=== PATIENT | male | born 1995 | race Caucasian/White ===

== ENCOUNTER → 2020-09-14 14:26 | Outpatient (CLI) | payer BC, SELFPAY ==
[2020-09-14 17:35] LABS: Absolute Lymphocyte Count 1.25 X10^3/uL (0.83-4.51); Absolute Neutrophil Count 3.4 X10^3/uL (2.0-7.7); Basophil# 0.03 X10^3/uL; Basophil% 0.6 % (0-1); Eosinophil# 0.19 X10^3/uL; Eosinophils% 3.5 % (0-5); Hemoglobin 15.8 g/dL (13.0-16.5); Lymphocyte # 1.25 X10^3/ul (0.83-4.51); Lymphocyte % 23.1 % (19-41); Mean Corp Hgb Conc 33.6 g/dL (32-36); Mean Corpuscular Hgb 28.5 pg (27.0-32.0); Mean Corpuscular Volume 84.8 fL (80-94); Mean Platelet Vol. 11.8 fl (6.2-12.0); Monocyte# 0.52 X10^3/uL; Monocyte% 9.6 % (0-10); NRBC Flagged by Analyzer 0 % (0-5); Neutrophil # 3.39 X10^3/uL (2.7-7.7); Neutrophil % 62.6 % (47-70); Platelet Count 237 K/mm3 (150-450); RBC Distribution Width CV 12.9 % (11.6-14.6); RBC Distribution Width SD 39.8 fl (35.1-43.9); Red Blood Count 5.54 M/mm3 (4.6-6.2); White Blood Count 5.4 K/mm3 (4.4-11.0)
[2020-09-14 17:56] LABS: ALB/GLOB Ratio 1.1 RATIO (0.9-2.4); AST(SGOT) 47 U/L (15-37); Alanine Aminotransfer ALT/SGPT 161 U/L (16-61); Albumin, Serum 3.9 g/dL (3.2-5.0); Alkaline Phosphatase 121 U/L (45-117); Anion Gap 6 (5-15); BUN 18 mg/dL (7-18); BUN/Creat Ratio 13.8 RATIO (10-20); Calcium,Total 8.7 mg/dL (8.5-10.1); Chloride 107 mmol/L (98-107); EST Glomerular Filtration Rate 73 mL/min (>60); Est Glom Filt Rate - Afr Amer 88 mL/min (>60); Globulin 3.7 g/dL (2.2-4.2); Glucose 67 mg/dL (74-106); Potassium 3.5 mmol/L (3.5-5.1); Protein, Total 7.6 g/dL (6.4-8.2); Sodium Level 141 mmol/L (136-145)
[2020-09-19 03:07] LABS: HEPATITIS B SURFACE AG Negative (Negative); Hepatitis A AB, Total Negative (Negative); Hepatitis A IgM Antibody Negative (Negative); Hepatitis B Core AB IgM Negative (Negative); Hepatitis B Core Ab Total Negative (Negative); Hepatitis C Ab 0.2 s/co ratio (0.0-0.9); QNTFERON TB Mitogen Value > 10.00 IU/mL (.); QNTFERON TB Nil Value 0.06 IU/mL (.); QNTFERON TB1+ Ag Value 0.08 IU/mL (.); QNTFERON TB2+ Ag Value 0.08 IU/mL (.)
[2020-09-19 15:06] LABS: Hep B Surface Antibodies Non Reactive (.); QNTIFERON TB Positive Criteria Negative (Negative)
== END ==
PROVIDERS: PCP Internal Medicine Endocrinology, Diabetes & Metabolism; Referring Provider Physician Assistant Medical; Visit Provider Physician Assistant Medical
DX: L40.0 Psoriasis vulgaris (principal); L40.8 Other psoriasis; L80 Vitiligo; Z79.899 Other long term (current) drug therapy
CPT/HCPCS: 36415; 80053; 85025; 86480; 86704; 86705; 86706; 86708; 86709; 86803; 87340

== ENCOUNTER → 2022-04-13 | Outpatient (CLI) | payer BC, SELFPAY ==
--- NOTE | 2022-04-13 08:22 | MRI_ITS ---
STUDY: MRI RIGHT KNEE REASON FOR EXAM: Male, 26 years old. Pain and injury. RIGHT knee pain, prior ACL repair 2014 TECHNIQUE: Standardized fat and water weighted pulse sequences were obtained in all 3 orthogonal planes. COMPARISON: X-ray of the right knee dated March 21, 2022 FINDINGS: There is diffuse complex tearing of the posterior horn of the medial meniscus with a large 3.1 x 2.33 cm extruded lobulated parameniscal ganglion cyst from a component of the tear at the root insertion. A small undersurface tear is also present in the body of the medial meniscus. Anterior horn is normal. There is diffuse, less than 50% thickness articular cartilage loss of the medial femorotibial compartment. Normal medial femoral condyle and tibial plateau. Normal medial collateral ligamentous complex (MCL). Normal distal semimembranosus, gracilis and semitendinosus tendons. Normal lateral meniscus. Normal hyaline cartilage of the lateral femorotibial compartment. Normal lateral femoral condyle and tibial plateau. Normal proximal tibiofibular articulation. Normal lateral collateral (fibular) ligament. Normal popliteus tendon. Normal biceps femoris tendon. The ACL graft is intact and without complications or tearing. Anchoring hardware in the femur and tibia are in expected position. No cyclops fibrous lesion is present near the ACL. No marrow edema or occult fracture or osteochondral defect is seen. A tiny amount of joint fluid is present. Normal posterior cruciate ligament (PCL). Normal congruent patellofemoral articulation. Normal hyaline cartilage of the patellofemoral compartment. Normal medial and lateral patellar retinaculum. Normal quadriceps tendon. There is mild diffuse patellar tendinosis with thickening of the tendon. There is linear fibrotic scarring of Hoffa''s fat pad, consistent with postsurgical changes from prior arthroscopic portal placements. A small graves''s cyst is present. The soft tissues are unremarkable. The otherwise visualized osseous structures are unremarkable. MRI/Lower Ext Joint Only (Routine) IMPRESSION: 1. Diffuse complex tearing of the posterior horn of the medial meniscus with a large 3.1 x 2.33 cm extruded lobulated parameniscal ganglion cyst from a component of the tear at the root insertion. A small undersurface tear is also present in the body of the medial meniscus. Electronically Signed: Jimy Sullivan MD at 12:16 EST ,
== END | disposition home or self-care (01) ==
LOC: MRI 08:26
PROVIDERS: PCP Internal Medicine Endocrinology, Diabetes & Metabolism; Referring Provider Physician Assistant; Visit Provider Physician Assistant
DX: M25.561 Pain in right knee (principal); M23.91 Unspecified internal derangement of right knee
CPT/HCPCS: 73721

== ENCOUNTER 2022-05-21 08:03 | Day surgery (SDC) | payer BC, SELFPAY ==
[2022-05-21] VITALS (8 sets, daily range): BP systolic 109–145; BP diastolic 48–102; PULSE 64–83; RESP 16; TEMP 36.1–36.9; O2SAT 91–100; BMI 35.2
[2022-05-21] MEDS: Lactated Ringers 1,000 ML 15 ML IV (08:46)
--- NOTE | 2022-05-21 10:06 | PCM.HP.STD ---
HPI - General HPI Narrative ANTON BLANC, is a 26 M who presents for right knee arthroscopy medial meniscus repair or partial meniscectomy. Had a prior ACL reconstruction the graft felt stable MRI shows it to be stable no subjective sensations of giving way however does have pain on the posterior medial aspect of the knee. No changes to history and physical exam. Patient wished to proceed right knee marked. Risks alternatives benefits discussed of the procedure patient wishes to proceed. Narcotic counseling done. MR#: [id number] Acct: [id number] Name:ANTON BENNETT Rep #: [id number] : 1995 ? ? Provider: Dr. Elkin Garnica MD Age/Sex:? 26/M ? ? Location: [facility] – [place] Status: Signed Intake Intake Visit Reasons:?RIGHT KNEE Chief Complaint: right knee Accompanied by: Self Is patient in pain?: Yes Allergies No Known Allergies Allergy (Verified 03/21/22 13:19) Medications adalimumab 40 mg/0.8 mL subcutaneous pen kit (Humira Pen) See Rx Instructions subcut .COMPLEX 03/21/22 [History Confirmed 04/18/22] levothyroxine 100 mcg capsule 100 mcg PO DAILY 03/21/22 [History Confirmed 04/18/22] PFSH Medical History? Tear of medial meniscus of right knee HPI RIGHT KNEE Details: Parts of this documentation were recorded by a scribe, this documentation accurately reflects the service provided and the decisions made by me, Dr. Elkin Garnica MD 04/18/22 1055. ANTON BLANC is a 26 year old M here today for? right knee pain, [address] Denson in [facility]. Meniscus repair possibly? Knee felt fine after that. Was working out, jumped down off a box, knee gave out, no pop, felt a pop, 4 weeks ago, and then now small things like twisting the knee and pivoting feels like it catches, or worse with going down stairs it buckled, on medial and lateral sides. Tweaked like getting out of the car. 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 per Fidencio GODOY ?right knee pain that started today. States that he was at crossfit this morning and was doing box jumps and when he came down off the box his knee gave on him. States that in 2015 he tore his ACL and his knee felt the same then as it did today when he re-injured it. States that sometimes when he hyper-extends his knee he feels it catching or clicking. States that his pain is posterior. Denies any radiating pain. States that he has had knee surgery from when he tore his ACL and notes that during the surgery that also closed up a tear that was either in his MCL or meniscus but he can't remember which one. States that walking increases his pain. Denies taking anything for the pain. Ortho Exam General General: Yes no acute distress Neurologic: Yes alert and Yes oriented x3 Psychologic: Yes reasonable and appropriate Right Knee Skin/Wound: Yes CDI, No erythema, No ecchymosis and No swelling 1+: Effusion Knee ROM: Yes ROM-Flexion 0-140 Examination: Yes Med jt line tenderness, Yes Lat jt line tenderness, No TTP inf pole patella, No Crepitus, Yes Pain with flexion, No Pain with extention, Yes Hoang's Test, No TTP Patellar tendon, No TTP Tibial tubercle, No TTP Pes Anserine and No Illiotibial band tenderness Quad Atrophy: No Stability: NML: Anterior Drawer, NML: Alcides, NML: Posterior Drawer, NML: Valgus 0, NML: Valgus 30, NML: Varus 0 and NML: Varus 30 Patella Translation: 2 Apprehension with Lateral Translation: No Patellar Tilt Normal: Yes Patella Grind: No KNEE: NVI normal sens and motor to foot. Left Knee Patella Translation: 2 Supplemental Info MR#:? [id number] Acct: [id number] Name:? ANTON BLANC Rep #: [id number] :?? 1995 M 26 ? From:? ? Pal Haney MD PCP: Dr. Joyce Diaz MD ? Status: DEP AMB Study: Knee 4 or More Views ? Date of Exam: 03/21/22 Exam# [id number] ? Ordering Dr:? Barry Porter STUDY: ? X-RAY - RIGHT KNEE REASON FOR EXAM: ? Male, 26 years old.? Pain TECHNIQUE: ? 4 view(s) of the knee. COMPARISON: ? None. FINDINGS: The patient is status post anterior cruciate ligament repair with tunnels seen in the distal femur and proximal tibia. Normal medial femorotibial compartment.? Normal lateral femorotibial compartment.? Normal patellofemoral articulation. The soft tissue structures are unremarkable. RAD/Knee 4 or More Views IMPRESSION: Status post anterior cruciate ligament repair.? No acute abnormality is seen. ? Electronically Signed: Pal Haney MD at 14:56 EST , ? MR#:? [id number] Acct: [id number] Name:? ANTON BLANC Rep #: [id number] :?? 1995 M 26 ? From:? ? Jimy Sullivan MD PCP: Dr. Joyce Diaz MD ? Status: REG CLI Study: Lower Ext Joint Only (Routine) ? Date of Exam: 04/13/22 Exam# [id number] ? Ordering Dr:? Barry Porter STUDY:? MRI RIGHT KNEE REASON FOR EXAM:? Male, 26 years old.? Pain and injury. RIGHT knee pain, prior ACL repair 2014 TECHNIQUE:? Standardized fat and water weighted pulse sequences were obtained in all 3 orthogonal planes. COMPARISON:? X-ray of the right knee dated March 21, 2022 FINDINGS: There is diffuse complex tearing of the posterior horn of the medial meniscus with a large 3.1 x 2.33 cm extruded lobulated parameniscal ganglion cyst from a component of the tear at the root insertion. A small undersurface tear is also present in the body of the medial meniscus. Anterior horn is normal. There is diffuse, less than 50% thickness articular cartilage loss of the medial femorotibial compartment.? Normal medial femoral condyle and tibial plateau. Normal medial collateral ligamentous complex (MCL).? Normal distal semimembranosus, gracilis and semitendinosus tendons. Normal lateral meniscus.? Normal hyaline cartilage of the lateral femorotibial compartment.? Normal lateral femoral condyle and tibial plateau. Normal proximal tibiofibular articulation.? Normal lateral collateral (fibular) ligament.? Normal popliteus tendon.? Normal biceps femoris tendon. The ACL graft is intact and without complications or tearing. Anchoring hardware in the femur and tibia are in expected position. No cyclops fibrous lesion is present near the ACL. No marrow edema or occult fracture or osteochondral defect is seen. A tiny amount of joint fluid is present. Normal posterior cruciate ligament (PCL). Normal congruent patellofemoral articulation.? Normal hyaline cartilage of the patellofemoral compartment.? Normal medial and lateral patellar retinaculum. Normal quadriceps tendon.? There is mild diffuse patellar tendinosis with thickening of the tendon.? There is linear fibrotic scarring of Hoffa''s fat pad, consistent with postsurgical changes from prior arthroscopic portal placements. A small graves''s cyst is present. The soft tissues are unremarkable.? The otherwise visualized osseous structures are unremarkable. MRI/Lower Ext Joint Only (Routine) IMPRESSION: 1.? Diffuse complex tearing of the posterior horn of the medial meniscus with a large 3.1 x 2.33 cm extruded lobulated parameniscal ganglion cyst from a component of the tear at the root insertion. A small undersurface tear is also present in the body of the medial meniscus. ? Electronically Signed: Jimy Sullivan MD at 12:16 EST Reading Location ID and State: [facility] / [place] , Service support? , Reviewed the images and agree with radiologist interpretation Coding Level of Care Code Off vis,est,level 4 Diagnoses Tear of medial meniscus of right knee? I01.876A Time Spent (min) 30 Assessment and Plan Assessment and Plan (1) Tear of medial meniscus of right knee: ?Status:?Acute ?Plan: 26-year-old man 4 weeks after a twisting injury to the knee in the setting of a prior ACL reconstruction with MRI showing medial meniscus tear and mechanical symptoms as well as pain on the medial side of the knee with a positive Hoang's test and stable graft on exam and MRI.? We discussed pros and cons risks and benefits of continued conservative management physical therapy injections activity modifications anti-inflammatories or other means of treating this.? Surgical option for this would be arthroscopy and medial meniscus partial meniscectomy or repair depending on tear configuration and appearance of the tear during surgery.? We discussed the pros and cons risks and benefits of each of those methods of treatment as well as the postoperative restrictions after meniscal repair.? He would like to go ahead with surgery some extent form for that as well as possible need for blood products. Surgery was booked as right knee arthroscopy, medial meniscus repair or partial meniscectomy Pros and cons risks and benefits were discussed with the patient including but not limited to infection, pain, stiffness, bleeding, damage to surrounding structures, neurovascular injury, recurrence or retear, failure or wear of hardware or fixation, instability, fracture, deep vein thrombosis and pulmonary embolism, anesthetic risks, patient dissatisfaction, need for further surgery and other risks.? Patient understood and wished to proceed with surgery, and signed the informed consent documentation. [facility] Medical History (Updated 05/14/22 @ 10:03 by Yaquelin Pierre) Alcohol use History of pain when walking History of tear of ACL (anterior cruciate ligament) Marijuana use Non-smoker Psoriatic arthritis Tear of medial meniscus of right knee Thyroid disease Wears contact lenses Wears glasses Home Medications adalimumab 40 mg/0.8 mL subcutaneous pen kit (Humira Pen) 40 mg subcut .QOTHERWEEK 03/21/22 [History Last Taken Unknown] levothyroxine 100 mcg capsule 125 mcg PO DAILY 03/21/22 [History Last Taken 05/21/22] testosterone cypionate 200 mg/mL intramuscular kit 200 mg IM .QOTHERWEEK 05/14/22 [History Last Taken Unknown] Allergy/AdvReac Type Severity Reaction Status Date / Time No Known Allergies Allergy Verified 05/21/22 08:47 Surgical History (Updated 05/14/22 @ 10:03 by Yaquelin Pierre) Hx of removal of testicle Hx of tonsillectomy Social History Smoking Status: Never smoker Vital Signs Vital Signs Vital Signs: 05/21/22 08:48 05/21/22 08:48 Temperature 98.0 F Temperature Source Temporal Pulse Rate 73 Respiratory Rate 16 Respiratory Pattern Normal Blood Pressure 145/102 H Blood Pressure Mean 116 Blood Pressure Source Monitor Blood Pressure Position Semi-Fowlers Blood Pressure Location Right Arm Pulse Ox 100 Oxygen Delivery Method Room Air Weight Weight: 260 lb 2.327 oz Body Mass Index (BMI) 35.2
[2022-05-21] MEDS: Cefazolin 2 GM in 0.9% Normal Saline 100 ML IV (10:13)
[2022-05-21] MEDS: Epinephrine (1 mg/ml) 1 MG/ML VIAL (10:45)
[2022-05-21] MEDS: Bupivacaine 0.25% 30 ML Vial (11:17)
--- NOTE | 2022-05-21 11:28 | PCM.OPRPT ---
Problems Associated Problem List Diagnoses (1) Tear of medial meniscus of right knee: Report of Operation Date of Procedure: 05/21/22 Pre-Operative Diagnosis: right knee medial meniscus tear Post-Operative Diagnosis: same Surgery/Procedure Performed:: right knee arthroscopy, debridement of adhesions, medial meniscus repair Surgeon: Elkin Garnica Type of Anesthesia: General and Local Anesthesiologist: Alexys Rodrigez Special Medications: 10cc 0.25% bupivicaine Estimated Blood Loss (mL): 25 Description of Procedure: Patient brought to the operating room theater. Placed supine on the table. General anesthesia induced. 3 g IV Ancef administered prior to the start of the procedure. 34 inch tourniquet applied to the right thigh appropriately padded. Stress positioner used the right side. SCD on the nonoperative leg. Right lower extremity prepped and draped in the usual sterile fashion with chlorhexidine-based prep solution allowing over 3 minutes drying time prior to draping. Preoperative timeout performed to confirm the site the patient and the surgery. Began by elevating the limb inflating the tourniquet to 250 mmHg. Made standard anterolateral and anteromedial arthroscopy incisions. There is some mild amount of scar tissue in the anterior aspect of the intra-articular portion of the knee. This was gently debrided. Medial lateral gutters entered no loose bodies. Patellofemoral cartilage appeared normal. Lateral meniscus was normal as was the cartilage in the lateral and medial compartments. ACL graft was stable and solid. Examination under anesthetic prior to arthroscopy. Revealed a stable graft no pivot shift solid endpoint with Alcides testing. Ligament appeared intact. Some extraneous tissue in the superior aspect of the notch removed. Medial meniscus examined. Some mild undersurface fraying near the posterior horn as well as at the inner third surface of the body small radial tear debrided using basket punch forceps and shaving instrument. Posterior aspect of the medial meniscus was probed found to have a vertical tear at the meniscocapsular junction resulting in anterior translation upon probing of the posterior horn. Root appeared intact. Medial compartment was extremely tight piecrust of the proximal aspect of the MCL to achieve slight opening of the medial compartment. I used meniscal rasp on the capsule side of the tear. This was for about 2 cm tear at the outer third therefore elected to go ahead with the repair. I used 2 Perez [employer] Nephew FasT-Fix implants 1 in horizontal mattress fashion more posterior and one in a vertical mattress fashion more anterior aspect of the tear. I ensured to aim this towards the more medial aspect of the knee. Tear was stable and solid to probing. Arthroscopy pictures taken and saved onto the system. Case terminated wound thoroughly irrigated portals closed with 3-0 Monocryl sutures. 10 cc quarter percent bupivacaine around the portals. Skin cleaned with wet and dry dressing followed application of Steri-Strips Adaptic 4 x 4 gauze abdominal pad dressings and 6 inch Nba bandage loosely wrapped. Lower extremity placed in a hinged knee brace locked in full extension. When not locked 0 to 90 degrees range of motion. Patient woken up from GI. Transferred off the operating room table taken to postanesthetic care unit in stable condition. All sponge needle instrument counts were correct no complications. Plan for the patient gentle weightbearing in full extension for 6 weeks and passive range of motion with therapy 0 to 90 degrees. Plan follow-up in the office in 2 days time tylenol/narcotic prescription with appropriate counseling. Grafts/Implants Used: perez and nephew reverse curve fast fix x2 Complications none Admit VTE Documentation VTE Present on Admission: No VTE Mechan Device Prophylaxis: SCD's Reason prophylaxis not ordered:: Treatment Not Indicated Procedures Musculoskeletal 20xxx-29xxx: Other Procedure See Report
--- NOTE | 2022-05-21 11:35 | DCINST_ITS ---
Discharge Instructions Diet Discharge Diet: No restrictions Activity Ice area for (Minutes): 10 Weight Bearing Status: Partial weight bearing Lifting Restrictions: PWB in full extension, ROM 0-90 passive only with Physical therapist Keep extremity elevated above heart level: Operative Extremity Dressing / Incision Call your doctor if your incision/area has: Continuous Slow Oozing, Sudden Increased Bleeding, Increased Pain/ Swelling, Increased Redness, Foul Smelling Discharge and Swelling at the incision site Remove Dressing in: leave in place till F/U Follow Up Care Please Follow Up With: Elkin Garnica MD When: 2 days Test Results: Test results from this visit will be discussed in further detail at your follow- up appointment, if applicable. Discharge Plan Admission Attending Provider: Elkin Garnica Primary Care Provider: Joyce Diaz Instructions Patient Instructions: Understanding Meniscal Tears Discharge Orders/Prescriptions Prescriptions: New oxycodone-acetaminophen [Percocet] 5-325 mg tablet 1 tab PO Q6H MDD 6 PRN (Reason: pain) 5 Days Qty: 20 0RF No Action levothyroxine 100 mcg capsule 125 mcg PO DAILY Humira Pen 40 mg/0.8 mL pen injector kit 40 mg subcut .QOTHERWEEK testosterone cypionate 200 mg/mL Kit 200 mg IM .QOTHERWEEK Referrals / Follow Up: Joyce Diaz MD [Primary Care Provider] - Elkin Garnica MD [Med Staff - Active Staff] - Disposition Disposition (needs filled in before D/C Order can be placed): Home, Self Care
[2022-05-21] MEDS: HYDROcodone Bitartrate/Apap 5/325 Tablet PO (13:13)
== END 2022-05-21 14:18 | disposition home or self-care (01) ==
LOC: SDC 08:08 → AC 08:08
PROVIDERS: PCP Internal Medicine Endocrinology, Diabetes & Metabolism; Referring Provider Orthopaedic Surgery Sports Medicine; Visit Provider Orthopaedic Surgery Sports Medicine
PROC: (CPT 29870; principal; 2022-05-21 09:15)
DX: S83.241A Other tear of medial meniscus, current injury, right knee, initial encounter (principal); L40.50 Arthropathic psoriasis, unspecified; W17.89XA Other fall from one level to another, initial encounter; Y93.A3 Activity, aerobic and step exercise; E07.9 Disorder of thyroid, unspecified; Z79.890 Hormone replacement therapy; Z79.899 Other long term (current) drug therapy
CPT/HCPCS: 29881; 01400; J7120; J2405